=== PATIENT | male | born 1960 | race Hispanic/Latino ===

== ENCOUNTER 2017-04-05 07:12 | Day surgery (SDC) | payer MEDICAID ==
[~2017-04-05] VITALS: Ht 180.3 cm; Wt 95.8 kg
[~2017-04-05 07:12] MED LIST: ASPI-1026 PO; CARV12.511 PO; LISI1TAB13 PO; QUET50TA55 PO; SODIUM CHLORIDE 0.9% 1000ML 1,000 ML IV ONE
[2017-04-05 08:11] VITALS: BP 113/80
[2017-04-05] MEDS ORDERED: PROPOFOL 10 MG/ML 20ML VIAL IV ONE ×2 (09:27)
[2017-04-05] MEDS ORDERED: GLYCOPYRROLATE 0.2 MG/ML 5 ML VIAL ONE (09:29)
== END 2017-04-05 10:38 | disposition home or self-care (01) ==
LOC: DAH 07:12 → SUH 07:12
PROVIDERS: ATTEND Internal Medicine
DX: K62.1 Rectal polyp (principal); D12.3 Benign neoplasm of transverse colon; K29.70 Gastritis, unspecified, without bleeding; B96.81 Helicobacter pylori [H. pylori] as the cause of diseases classified elsewhere; K21.0 Gastro-esophageal reflux disease with esophagitis; K57.30 Diverticulosis of large intestine without perforation or abscess without bleeding; K64.8 Other hemorrhoids; F41.9 Anxiety disorder, unspecified; F32.9 Major depressive disorder, single episode, unspecified; I12.9 Hypertensive chronic kidney disease with stage 1 through stage 4 chronic kidney disease, or unspecified chronic kidney disease; N18.9 Chronic kidney disease, unspecified; M19.90 Unspecified osteoarthritis, unspecified site; Z68.33 Body mass index [BMI] 33.0-33.9, adult; Z80.0 Family history of malignant neoplasm of digestive organs
CPT/HCPCS: 36415; 43239; 45380; 45385; 87520; 88305; 88312; 88342; J2704 ×2; J3490; J7030